=== PATIENT | male | born 1950 | race Caucasian/White ===

== ENCOUNTER 2021-01-15 09:37 | Outpatient (CLI) | payer OTHER, SELFPAY ==
--- NOTE | 2021-01-15 | ECG_ITS ---
Measurements Intervals [place] Rate: 85 P: 34 MD: 149 QRS: -11 QRSD: 110 T: 41 QT: 382 QTc: 456 Interpretive Statements SINUS RHYTHM VENTRICULAR PREMATURE COMPLEX BASELINE ARTIFACT- III, AVL BORDERLINE ECG Electronically Signed On 01-15-2021 10:35:48 CDT by Reza Aponte D.O.
== END 2021-01-15 09:38 | disposition home or self-care (01) ==
LOC: ANHCARD 09:41
PROVIDERS: PCP Internal Medicine; Visit Provider Nurse Practitioner
DX: Z01.818 Encounter for other preprocedural examination (principal); R94.31 Abnormal electrocardiogram [ECG] [EKG]
CPT/HCPCS: 93005